=== PATIENT | female | born 1970 | race Caucasian/White ===

== ENCOUNTER 2024-04-07 04:00 | Emergency (ER) | payer OTHER ==
[~2024-04-07] VITALS: Ht 165.1 cm; Wt 60.0 kg
[2024-04-07] MEDS: METHYLPREDNISOLONE SOD SUCC 125MG/2ML (ACT-O-VIAL) IV STA (04:00)
[2024-04-07] MEDS ORDERED: ALBUTEROL (0.083%) 2.5MG/3ML NEB HHN STA (04:12)
[2024-04-07] MEDS ORDERED: IPRATROPIUM BROMIDE (0.02%) 0.5MG/2.5ML NEB HHN STA (04:12)
[2024-04-07 04:28] LABS: HEMATOCRIT. 29.7 % (36.0-48.0); MEAN CORPUSCULAR HEMOGLOBIN 30.9 pg (28.0-32.0); MEAN CORPUSCULAR HGB CONC 33.7 g/dL (31.0-37.0); MEAN CORPUSCULAR VOLUME 91.7 fL (81.0-99.0); MEAN PLATELET VOLUME 8.3 fl (7.4-10.4); RED BLOOD CELL COUNT 3.23 mill/uL (4.2-5.4); RED CELL DISTRIBUTION WIDTH 12.7 % (11.6-14.6); WHITE BLOOD COUNT 15.3 x1000/uL (4.5-11.0)
[2024-04-07 04:34] LABS: CHLORIDE 108 mEq/L (98-107); SODIUM 144 mEq/L (136-145)
[2024-04-07 04:35] LABS: CARBON DIOXIDE 27 mEq/L (21-32)
[2024-04-07 04:36] LABS: CALCIUM 9.4 mg/dL (8.7-10.4); DIFFERENTIAL COMMENT 1
[2024-04-07 04:39] LABS: PLATELET 32 x1000/uL (130-400)
[2024-04-07 04:40] LABS: CREATININE 0.5 mg/dL (0.6-1.0); GLUCOSE 100 mg/dL (70-105)
[2024-04-07 04:41] LABS: ETHANOL BLOOD < 10 mg/dL (<10); UREA NITROGEN BLOOD 10 mg/dL (9-23)
[2024-04-07 04:43] LABS: OVALOCYTES 1+; PLATELET ESTIMATE MARKEDLY DECREASED; TEAR DROP CELLS 1+
[2024-04-07 04:49] LABS: TROPONIN I HIGH SENSITIVITY < 4 ng/L (3.0-34)
[2024-04-07 05:42] LABS: *AMPHETAMINES SCREEN URINE NEGATIVE (NEGATIVE); *BARBITURATES SCREEN URINE NEGATIVE (NEGATIVE); *BENZODIAZEPINES SCREEN URINE NEGATIVE (NEGATIVE); CANNABINOID URINE SCREEN NEGATIVE (NEGATIVE); ECSTASY MDMA SCREEN URINE CONF.TEST INDICATED (NEGATIVE); METHADONE URINE SCREEN NEGATIVE (NEGATIVE); OPIATES URINE SCREEN NEGATIVE (NEGATIVE); PHENCYCLIDINE URINE SCREEN NEGATIVE (NEGATIVE)
[2024-04-07] MEDS: SODIUM CHLORIDE 0.9% 1,000 ML IV ONE (05:51)
[2024-04-07] MEDS: ACETAMINOPHEN 1000MG/100ML 100 ML IV ONE (05:51)
[2024-04-07 05:52] LABS: *COCAINE SCREEN URINE NEGATIVE (NEGATIVE)
[2024-04-07 07:02] VITALS: PULSE 93; RESP 18; O2SAT 98
[2024-04-07] MEDS: ALBUTEROL (0.083%) 2.5MG/3ML NEB HHN NR (07:02)
[2024-04-07] MEDS: IPRATROPIUM BROMIDE (0.02%) 0.5MG/2.5ML NEB HHN NR (07:02)
[2024-04-07 07:25] LABS: TROPONIN I HIGH SENSITIVITY < 4 ng/L (3.0-34)
[2024-04-07 08:35] VITALS: BP 105/57; PULSE 99; RESP 18; TEMP 98.3
== END 2024-04-07 09:00 | disposition home or self-care (01) ==
LOC: ER 04:18 → CANBEDREQ 08:05 → ER 09:00
DX: J18.9 Pneumonia, unspecified organism (principal); J45.909 Unspecified asthma, uncomplicated; Z85.72 Personal history of non-Hodgkin lymphomas; Z88.1 Allergy status to other antibiotic agents
CPT/HCPCS: 80305; 80048; 80320; 83880; 83690; 85025; 85379; 84484; 36415; 71045; 94640; 96365; 96375; 99285; J2919; Z7610; J7030; G0480; J0131